=== PATIENT | male | born 1985 ===

== ENCOUNTER 2019-06-12 14:09 | Emergency (ER) | payer SELFPAY ==
--- NOTE | 2019-06-12 15:37 | RAD REPORT ---
EXAM DESCRIPTION: RAD - Wrist Left 3 View - 06/12/2019 3:27 pm CLINICAL HISTORY: PAIN Pain COMPARISON: No comparisons FINDINGS: Intraarticular fracture is seen involving the lateral aspect of the distal radius. Ulnar s tyloid avulsion fracture also present. No dislocation evident.
[2019-06-12] MEDS ORDERED: HYDROCODONE/APAP 5/325 MG TAB ONE (15:41)
--- NOTE | 2019-06-12 15:41 | RAD REPORT ---
EXAM DESCRIPTION: RAD - Wrist Right 3 View - 06/12/2019 3:29 pm CLINICAL HISTORY: PAIN Pain COMPARISON: <Comparisons> FINDINGS: No fracture or dislocation seen.
--- NOTE | 2019-06-12 15:42 | RAD REPORT ---
EXAM DESCRIPTION: RAD - C Spine W Obliques - 06/12/2019 3:29 pm CLINICAL HISTORY: PAIN Trauma, neck injury COMPARISON: <Comparisons> FINDINGS: Cervical bodies are normal in height and alignment.No fracture or acute bony process seen. No disc space narrowing. No prevertebral soft tissue thickening or other suspicious soft tissue finding. IMPRESSION: Negative cervical spine examination.
[2019-06-12] MEDS ORDERED: KETOROLAC 30 MG/ML INJ ONE (15:44)
--- NOTE | 2019-06-12 15:55 | ER ---
Nurse's Notes [facility] Name: Bashir Chamberlain Age: 33 yrs Sex: Male : 1985 Arrival Date: 06/12/2019 Time: 14:14 Bed 13 Private MD: Diagnosis: Unspecified fracture of left wrist and hand Presentation: 06/12 14:22 Presenting complaint: Patient states: L forearm/ wrist pain and R wrist tenderness with ss movement that began after falling 8 feet from ladder. Pt denies LOC. Mild swelling noted to L wrist area. Transition of care: patient was not received from another setting of care. Onset of symptoms was June 12, 2019. Risk Assessment: Do you want to hurt yourself or someone else? Patient reports no desire to harm self or others. Initial Sepsis Screen: Does the patient meet any 2 criteria? No. Patient's initial sepsis screen is negative. Does the patient have a suspected source of infection? No. Patient's initial sepsis screen is negative. Care prior to arrival: None. 14:22 Method Of Arrival: Ambulatory ss 14:22 Acuity: ALEXA 4 ss Historical: - Allergies: 14:24 No Known Allergies; ss - Home Meds: 14:24 None [Active]; ss - PMHx: 14:24 None; ss - PSHx: 14:24 None; ss - Immunization history:: Adult Immunizations up to date. - Social history:: Smoking status: Patient uses tobacco products, smokes one-half pack cigarettes per day. - Ebola Screening: : Patient denies exposure to infectious person Patient denies travel to an Ebola-affected area in the 21 days before illness onset. Screenin:30 Abuse screen: Denies threats or abuse. Denies injuries from another. Nutritional ca1 screening: No deficits noted. Tuberculosis screening: No symptoms or risk factors identified. Fall Risk Fall in past 12 months (25 points). Assessment: 14:30 General: Appears in no apparent distress. comfortable, Behavior is calm, cooperative, ca1 appropriate for age. Pain: Complains of pain in right hand and right arm Pain does not radiate. Pain currently is 10 out of 10 on a pain scale. Neuro: Level of Consciousness is awake, alert, obeys commands, Oriented to person, place, time, situation. Cardiovascular: Heart tones S1 S2 present Capillary refill < 3 seconds Patient's skin is warm and dry. Respiratory: Airway is patent Respiratory effort is even, unlabored, Respiratory pattern is regular, symmetrical, Breath sounds are clear bilaterally. GI: Abdomen is round non-distended, Bowel sounds present X 4 quads. Abd is soft and non tender X 4 quads. : No deficits noted. No signs and/or symptoms were reported regarding the genitourinary system. EENT: No deficits noted. No signs and/or symptoms were reported regarding the EENT system. Derm: Skin is intact, is healthy with good turgor, Skin is pink, warm \T\ dry. Musculoskeletal: Circulation, motion, and sensation intact. Capillary refill < 3 seconds, Range of motion: intact in all extremities. 15:38 Reassessment: Patient appears in no apparent distress at this time. Patient and/or ca1 family updated on plan of care and expected duration. Pain level reassessed. Patient is alert, oriented x 3, equal unlabored respirations, skin warm/dry/pink. 16:20 Reassessment: Patient appears in no apparent distress at this time. Patient is alert, ca1 oriented x 3, equal unlabored respirations, skin warm/dry/pink. Vital Signs: 14:24 BP 136 / 69; Pulse 87; Resp 16; Temp 98; Pulse Ox 100% on R/A; Weight 99.79 kg; Height ss 5 ft. 5 in. (165.10 cm); Pain 10/10; 15:38 BP 132 / 88; Pulse 72; Resp 16 S; Pulse Ox 98% on R/A; ca1 16:20 BP 136 / 76; Pulse 79; Resp 16 S; Pulse Ox 100% on R/A; ca1 14:24 Body Mass Index 36.61 (99.79 kg, 165.10 cm) ED Course: 14:14 Patient arrived in ED. mr 14:23 Triage completed. ss 14:24 Arm band placed on right wrist. ss 14:25 Ellis Peng MD is Attending Physician. gs 14:30 Patient has correct armband on for positive identification. Bed in low position. Call ca1 light in reach. Side rails up X 1. Pulse ox on. NIBP on. Warm blanket given. 14:36 Luisa Lazo, JUAN CARLOS is Primary Nurse. ca1 15:28 XRAY C Spine W Obliques In Process Unspecified. EDMS 15:28 Wrist Right 3 View XRAY In Process Unspecified. EDMS 15:28 Wrist Left (3 View) XRAY In Process Unspecified. EDMS 15:54 Stephan Veloz MD is Referral Physician. gs 16:25 Orthoglass splint: Sugar tong splint applied on left arm. Sling applied to left arm. lt1 16:29 No provider procedures requiring assistance completed. Patient did not have IV access ca1 during this emergency room visit. Administered Medications: 15:43 CANCELLED (Patient Refused): [place] 5 mg-325 mg 1 tabs PO once; RASS on ADMIN: Combtv4, gs Very Agttd3, Agttd2, Rstlss1, AlertClm0, Drwsy-1, Lt Sdtn-2, Mod Sdtn-3, Dp Sdtn-4, UnArsble-5 15:49 Drug: TORadol 30 mg Route: IM; Site: right deltoid; ca1 16:20 Follow up: Response: No adverse reaction; Pain is decreased ca1 Outcome: 15:54 Discharge ordered by MD. gs 16:29 Discharged to home ambulatory, with friend. ca1 16:29 Condition: stable 16:29 Discharge instructions given to patient, Instructed on discharge instructions, follow up and referral plans. medication usage, Demonstrated understanding of instructions, follow-up care, medications, Prescriptions given X 1. 16:30 Patient left the ED. ca1 Signatures: Dispatcher [employer] [facility] Cher KimballPat benjamin RN RN ss Starr, Gregory, MD MD Luisa Lazo RN RN ca1 Priscilla Parada lt1
--- NOTE | 2019-06-12 15:55 | EDPHYS ---
Physician Documentation [facility] Name: Bashir Chamberlain Age: 33 yrs Sex: Male : 1985 Arrival Date: 06/12/2019 Time: 14:14 Bed 13 Private MD: ED Physician Ellis Peng HPI: 06/12 15:46 This 33 yrs old Patient Declined Male presents to ER via Ambulatory with complaints of gs Fall Injury. 15:46 Details of fall: The patient fell from a height, from a ladder, approximately 5 feet. gs Onset: The symptoms/episode began/occurred acutely, just prior to arrival. Associated injuries: The patient sustained right hand and left hand. Severity of symptoms: At their worst the symptoms were moderate, in the emergency department the symptoms are unchanged. The patient has not experienced similar symptoms in the past. Historical: - Allergies: 14:24 No Known Allergies; ss - Home Meds: 14:24 None [Active]; ss - PMHx: 14:24 None; ss - PSHx: 14:24 None; ss - Immunization history:: Adult Immunizations up to date. - Social history:: Smoking status: Patient uses tobacco products, smokes one-half pack cigarettes per day. - Ebola Screening: : Patient denies exposure to infectious person Patient denies travel to an Ebola-affected area in the 21 days before illness onset. ROS: 15:46 Neuro: Negative for loss of consciousness. gs 15:46 All other systems are negative. Exam: 15:46 Head/Face: Normocephalic, atraumatic. Eyes: Pupils equal round and reactive to light, gs extra-ocular motions intact. Lids and lashes normal. Conjunctiva and sclera are non-icteric and not injected. Cornea within normal limits. Periorbital areas with no swelling, redness, or edema. ENT: Nares patent. No nasal discharge, no septal abnormalities noted. Tympanic membranes are normal and external auditory canals are clear. Oropharynx with no redness, swelling, or masses, exudates, or evidence of obstruction, uvula midline. Mucous membranes moist. 15:46 Chest/axilla: Normal chest wall appearance and motion. Nontender with no deformity. No lesions are appreciated. Cardiovascular: Regular rate and rhythm with a normal S1 and S2. No gallops, murmurs, or rubs. Normal PMI, no JVD. No pulse deficits. Respiratory: Lungs have equal breath sounds bilaterally, clear to auscultation and percussion. No rales, rhonchi or wheezes noted. No increased work of breathing, no retractions or nasal flaring. Abdomen/GI: Soft, non-tender, with normal bowel sounds. No distension or tympany. No guarding or rebound. No evidence of tenderness throughout. Back: No spinal tenderness. No costovertebral tenderness. Full range of motion. Male : Normal genitalia with no discharge or lesions. Skin: Warm, dry with normal turgor. Normal color with no rashes, no lesions, and no evidence of cellulitis. 15:46 Constitutional: The patient appears alert, awake. 15:46 Neck: C-spine: vertebral tenderness, that is mild, appreciated at C4 and C5. 15:46 Musculoskeletal/extremity: Extremities: noted in the dorsal aspect of right wrist: tenderness, noted in the dorsal aspect of left wrist: deformity, swelling, tenderness. Vital Signs: 14:24 BP 136 / 69; Pulse 87; Resp 16; Temp 98; Pulse Ox 100% on R/A; Weight 99.79 kg; Height ss 5 ft. 5 in. (165.10 cm); Pain 10/10; 15:38 BP 132 / 88; Pulse 72; Resp 16 S; Pulse Ox 98% on R/A; ca1 16:20 BP 136 / 76; Pulse 79; Resp 16 S; Pulse Ox 100% on R/A; ca1 14:24 Body Mass Index 36.61 (99.79 kg, 165.10 cm) ss MDM: 14:36 Patient medically screened. 15:46 Data reviewed: vital signs, nurses notes, radiologic studies. Counseling: I had a detailed discussion with the patient and/or guardian regarding: the historical points, exam findings, and any diagnostic results supporting the discharge/admit diagnosis, the presence of at least one elevated blood pressure reading (>120/80) during this emergency department visit, radiology results, the need for outpatient follow up, a orthopedic surgeon. Response to treatment: the patient's symptoms have markedly improved after treatment, and as a result, I will discharge patient. 06/12 14:38 Order name: XRAY C Spine W Obliques; Complete Time: 15:44 gs 06/12 14:38 Order name: Wrist Right 3 View XRAY; Complete Time: 15:44 06/12 14:38 Order name: Wrist Left (3 View) XRAY; Complete Time: 15:44 06/12 15:45 Order name: Sugar Tong Forearm Splint: left wrist; Complete Time: 16:26 Administered Medications: 15:43 CANCELLED (Patient Refused): [place] 5 mg-325 mg 1 tabs PO once; RASS on ADMIN: Combtv4, gs Very Agttd3, Agttd2, Rstlss1, AlertClm0, Drwsy-1, Lt Sdtn-2, Mod Sdtn-3, Dp Sdtn-4, UnArsble-5 15:49 Drug: TORadol 30 mg Route: IM; Site: right deltoid; ca1 16:20 Follow up: Response: No adverse reaction; Pain is decreased ca1 Disposition: 06/12/19 15:54 Discharged to Home. Impression: Unspecified fracture of left wrist and hand. - Condition is Stable. - Discharge Instructions: Wrist Fracture Treated With Immobilization. - Prescriptions for Tylenol- Codeine #4 300-60 mg Oral Tablet - take 1 tablet by ORAL route every 6 hours As needed; 10 tablet. - Medication Reconciliation Form, Thank You Letter, Antibiotic Education, Prescription Opioid Use form. - Follow up: Stephan Veloz MD; When: 2 - 3 days; Reason: Re-evaluation by your physician. Signatures: Dispatcher [employer] EDMS Pat Baker RN RN Ellis Peng MD MD Luisa Lazo RN RN ca1 Corrections: (The following items were deleted from the chart) 15:43 15:40 [place] 5 mg-325 mg 1 tabs PO once; RASS on ADMIN: Combtv4, Very Agttd3, Agttd2, gs Rstlss1, AlertClm0, Drwsy-1, Lt Sdtn-2, Mod Sdtn-3, Dp Sdtn-4, UnArsble-5 ordered. 16:30 15:54 06/12/2019 15:54 Discharged to Home. Impression: Unspecified fracture of left ca1 wrist and hand. Condition is Stable. Forms are Medication Reconciliation Form, Thank You Letter, Antibiotic Education, Prescription Opioid Use. Follow up: Stephan Veloz; When: 2 - 3 days; Reason: Re-evaluation by your physician. gs
== END 2019-06-12 16:30 | disposition home or self-care (01) ==
LOC: ER 14:09
PROC: 2W3DX1Z Immobilization of Left Lower Arm using Splint (ICD-10-PCS; principal; 2019-06-12)
DX: S52.502A Unspecified fracture of the lower end of left radius, initial encounter for closed fracture (principal); S52.612A Displaced fracture of left ulna styloid process, initial encounter for closed fracture; W17.89XA Other fall from one level to another, initial encounter; Y93.9 Activity, unspecified; Y92.9 Unspecified place or not applicable; F17.210 Nicotine dependence, cigarettes, uncomplicated
CPT/HCPCS: 72050; 96372; 99284